=== PATIENT | female | born 1985 | race Hispanic/Latino ===

== ENCOUNTER 2018-04-12 09:17 | Observation (INO) | payer MEDICAID ==
[2018-04-12 10:16] LABS: APPEARANCE,URINE Cloudy (CLEAR); BILIRUBIN,URINE Negative (NEGATIVE); COLOR,URINE Dark Yellow (YELLOW); GLUCOSE, URINE (UA) Negative (NEGATIVE); KETONES,URINE Trace mg/dL (NEGATIVE); LEUKOCYTE ESTERASE ,URINE Small (NEGATIVE); NITRATE,URINE Negative (NEGATIVE); OCCULT BLOOD,URINE Negative (NEGATIVE); PROTEIN,URINE POS 1+ (NEGATIVE)
[2018-04-12 10:41] LABS: BACTERIA,URINE Few /HPF (None Seen); RBC,URINE 0-1 /HPF (0-1); TRICHOMONAS,URINE Few /LPF (None Seen)
[2018-04-12] MEDS ORDERED: CITRIC ACID/SODIUM CITRATE 30 ML UDCUP ONE (11:27)
[2018-04-12] MEDS ORDERED: LACTATED RINGERS 1000ML 1,000 ML IV SCH (11:30)
[2018-04-12] MEDS ORDERED: CITRIC ACID/SODIUM CITRATE 30 ML UDCUP PO SCH (11:30)
== END 2018-04-12 13:46 | disposition home or self-care (01) ==
LOC: EDH 09:17 → LDH 09:18
PROVIDERS: ADMIT Obstetrics & Gynecology; ATTEND Obstetrics & Gynecology
DX: O26.892 Other specified pregnancy related conditions, second trimester (principal); R10.13 Epigastric pain; R11.10 Vomiting, unspecified; Z3A.21 21 weeks gestation of pregnancy
CPT/HCPCS: 81001; 96360; 96361; 99285; G0378 ×4; J7120

== ENCOUNTER 2020-03-16 16:23 | Inpatient (IN) | payer MEDICAID ==
[~2020-03-16] VITALS: Ht 160 cm; Wt 108.9 kg
[~2020-03-16 16:23] MED LIST: FERR-82 PO; PREN-68 PO
[2020-03-16] MEDS ORDERED: LACTATED RINGERS 1000ML 1,000 ML IV PRN (16:27)
[2020-03-16] MEDS ORDERED: OXYTOCIN-LR 20 UNITS/1000 ML 1,000 ML IV SCH ×2 (16:30→17:00)
[2020-03-16 17:38] LABS: MEAN CORPUSCULAR HEMOGLOBIN 22.8 pg (27.0-33.0); MEAN CORPUSCULAR HGB CONC 30.9 g/dL (32.0-36.0); MEAN CORPUSCULAR VOLUME 73.8 fL (79-99); PLATELET COUNT (AUTO) 403 K/uL (130-400); RED BLOOD CELL COUNT(AUTO) 4.61 MIL/uL (4.00-5.50)
[2020-03-16 18:03] LABS: APPEARANCE,URINE Clear (CLEAR); BILIRUBIN,URINE Negative (NEGATIVE); COLOR,URINE Yellow (YELLOW); GLUCOSE, URINE (UA) Negative (NEGATIVE); KETONES,URINE Negative (NEGATIVE); LEUKOCYTE ESTERASE ,URINE Negative (NEGATIVE); NITRATE,URINE Negative (NEGATIVE); OCCULT BLOOD,URINE Negative (NEGATIVE); PH,URINE 5.5 (5.0-8.0); PROTEIN,URINE Negative (NEGATIVE); UROBILINOGEN,URINE 0.2 mg/dL (0.2-1.0)
[2020-03-16] MEDS ORDERED: CETIRIZINE HCL 5 MG TABLET PO SCH (22:00)
[2020-03-16] MEDS: AMOXICILLIN/POTASSIUM CLAV 500-125 TABLET PO SCH (23:51)
[2020-03-17] MEDS ORDERED: MEPERIDINE-PF 50 MG/ML SYG IVP SCH (07:30)
[2020-03-17] MEDS ORDERED: PROMETHAZINE HCL 25 MG/ML 1ML AMPULE IM SCH (07:30)
[2020-03-17] MEDS ORDERED: MEASLES/MUMPS/RUBELLA VACCINE, LIVE 0.5 ML/VIAL SQ PRN (10:00)
[2020-03-17] MEDS ORDERED: DIPH,PERTUSS(ACELL),TET VAC/PF 0.5 ML VIAL IM PRN (10:00)
[2020-03-17] MEDS ORDERED: WITCH HAZEL 1 PAD TP PRN (10:00)
[2020-03-17] MEDS ORDERED: BENZOCAINE/LANOLIN/ALOE VERA 60 ML AEROSOL TP PRN (10:00)
[2020-03-17] MEDS ORDERED: ACETAMINOPHEN-CODEINE 300/30MG TAB PO PRN (10:00)
[2020-03-17] MEDS ORDERED: LANOLIN 30GM OINTMENT TP PRN (10:00)
[2020-03-17] MEDS ORDERED: ACETAMINOPHEN 325 MG TAB PO PRN (10:00)
[2020-03-17 10:53] VITALS: BP 122/62
[2020-03-17] MEDS ORDERED: AMOX-426 PO (11:04)
[2020-03-17] MEDS: AMOXICILLIN/POTASSIUM CLAV 500-125 TABLET PO SCH ×2 (11:10→22:35)
[2020-03-17] MEDS: IBUPROFEN 600 MG TABLET PO PRN ×2 (11:11→22:36)
[2020-03-17 16:14] VITALS: BP 132/63
--- NOTE | 2020-03-17 18:05 | NUR ---
received pt from PACU via her bed, routine assessment done, scant vaginal bleeding noted. vital signs stable. Addendum: 03/17/20 at 1856 by KARLEE SERRANO RN Amended: Links added.
[2020-03-17 18:43] VITALS: BP 137/79
[2020-03-17 18:48] VITALS: BP 124/65
[2020-03-17] MEDS: DOCUSATE SODIUM 100 MG CAP PO SCH (21:16)
[2020-03-17 22:55] VITALS: BP 125/74
[2020-03-18 03:10] VITALS: BP 123/77
[2020-03-18 06:56] LABS: MEAN CORPUSCULAR HEMOGLOBIN 22.6 pg (27.0-33.0); MEAN CORPUSCULAR HGB CONC 30.3 g/dL (32.0-36.0); MEAN CORPUSCULAR VOLUME 74.4 fL (79-99); RED BLOOD CELL COUNT(AUTO) 4.03 MIL/uL (4.00-5.50); RED CELL DISTRIBUTION WIDTH 16.3 % (11.0-15.5); WHITE BLOOD COUNT (AUTO) 12.4 K/uL (4.8-10.8)
[2020-03-18 08:00] VITALS: BP 100/76
[2020-03-18 09:11] LABS: HEPATITIS Bs ANTIGEN SCREEN P Negative (Negative)
[2020-03-18] MEDS: IBUPROFEN 600 MG TABLET PO PRN (09:39)
[2020-03-18] MEDS: DOCUSATE SODIUM 100 MG CAP PO SCH (09:39)
--- NOTE | 2020-03-18 10:55 | NUR ---
INSTRUCTIONS READ AND EXPLAINED TO PATIENT. QUESTIONS INVITED AND ANSWERED. RX FOR IBUPROFEN 600MG HANDED TO PATIENT. PATIENT VOICED UNDERSTANDING ON ALL INSTRUCTIONS
== END 2020-03-18 12:35 | disposition home or self-care (01) | DRG 560 ==
LOC: UNDOADMIN 16:23 → LDH 16:23 → WSH 03-17 10:50
PROVIDERS: ADMIT Obstetrics & Gynecology; ATTEND Obstetrics & Gynecology
PROC: 10E0XZZ Delivery of Products of Conception, External Approach (ICD-10-PCS; principal; 2020-03-17)
PROC: 3E033VJ Introduction of Other Hormone into Peripheral Vein, Percutaneous Approach (ICD-10-PCS; 2020-03-17)
PROC: 10907ZC Drainage of Amniotic Fluid, Therapeutic from Products of Conception, Via Natural or Artificial Opening (ICD-10-PCS; 2020-03-17)
PROC: 3E0134Z Introduction of Serum, Toxoid and Vaccine into Subcutaneous Tissue, Percutaneous Approach (ICD-10-PCS; 2020-03-17)
PROC: 3E0234Z Introduction of Serum, Toxoid and Vaccine into Muscle, Percutaneous Approach (ICD-10-PCS; 2020-03-17)
DX: O80 Encounter for full-term uncomplicated delivery (principal); Z37.0 Single live birth; Z23 Encounter for immunization; Z3A.37 37 weeks gestation of pregnancy
CPT/HCPCS: 36415; 76819; 81003; 85027; 86592; 86850; 86900; 86901; 87340; 87804; A4606; G0378; J2175; J2550; J2590; J7120

== ENCOUNTER 2024-09-21 23:12 | Emergency (ER) | payer MEDICAID ==
[~2024-09-21] VITALS: Ht 160 cm; Wt 103.4 kg
[~2024-09-21 23:12] MED LIST changes: +AMOX-426 PO; -FERR-82 PO; -PREN-68 PO
--- NOTE | 2024-09-21 23:31 | ERN ---
ED Note History of Present Illness Stated Complaint: C/O COUGH,SORE THROAT, PAIN TO RIB CAGE, FEVER Chief Complaint: Cough Time Seen by MD: 23:19 Time Seen by Midlevel: 23:19 Dictation: The patient is a 38-year-old female with a history of cholecystectomy who presents to the emergency department with complaints of three weeks of cough, sore throat, right ear pain, nasal congestion, bilateral rib pain when coughing. Patient denies any fevers. Patient reports multiple family members with same symptoms at home. Allergies: Coded Allergies: No Known Drug Allergies (Unverified Allergy, Unknown, 04/12/18) Home Meds Reported Medications Amoxicillin/Potassium Clav (Augmentin 500-125 Tablet) 1 Each Tablet, 1 EACH PO [id number], TAB 03/17/20 Past Medical History Past Medical History: No Pertinent History Surgical History: Cholecystectomy LMP: Sep 21, 2024 RN Note Reviewed/Agreed w/PFSH: Yes Review of System Dictation Constitutional: Negative for fever,chills, and weight loss Eyes: Negative for injury, pain,redness, and discharge ENT: Negative for injury,pain or swelling positive for sore throat, right ear pain, nasal congestion Cardiovascular: Negative for chest pain, palpitations, and edema Respiratory: Negative for shortness of breath, , and wheezing, positive for cough Abdomen/GI: Negative for abdominal pain, nausea, vomiting, diarrhea, and constipation Back: Negative for injury and pain : Negative for injury, bleeding and discharge MS/Extremity: Negative for injury and deformity Skin: Negative for rash, and discoloration Neuro: Negative for headache, weakness, numbness, tingling, and seizure Psych: Negative for suicide ideation, homicidal ideation, and hallucinations Initial Vital Sign VS Vital Signs Date Time Temp Pulse Resp B/P (MAP) Pulse Ox O2 Delivery O2 Flow Rate FiO2 09/21/24 23:15 99.1 81 18 150/93 98 Room Air Physical Exam Dictation Vital Signs reviewed General Appearance: Alert, oriented x 3, no acute distress, well developed, nourished. Head and Face: non-traumatic. Eyes: PERRL, pink conjunctivas, eyelid no trauma, anterior chamber with arcus senilis. Ears: Pinnas intact and no signs of trauma or erythema to right ear canal clear and no discharge TM no erythema Nose: No discharge, no bleeding. Oropharynx: Mouth normal, tongue pink. pharynx clear,no erythema, tonsils no exudates, no abscesses noted, mucous membrane moist Neck: Supple, non-tender, no thyromegaly, no masses, no JVD, no bruits Breast:Deferred Chest:No tenderness, no crepitus, no paradoxical movement, no retractions Lungs:Clear, well-ventilated, symmetric, no rales, no wheezing, no rhonchi, no stridor, good breath sounds bilaterally Heart: Regular rate, regular rhythm, no murmur, no gallops Vascular: no peripheral edema, Abdomen: Soft, positive bowel sounds, nondistended, no guarding, nontender, no rebound, no masses no hepatomegaly, no splenomegaly, no Haile's sign, no hernias. Rectal: Deferred Genital: Deferred Neurological: Normal speech, motor function intact, sensory function intact Musculoskeletal: Neck nontender, full range of motion, back nontender, full range of motion, Extremities: nontender, full range of motion Skin: Color pink, dry, no turgor, no rash, no lacerations, no abrasions, no contusions. Lymphatic: Deferred Results (Laboratory/Radiology) Laboratory/Radiology Laboratory Tests Test 09/21/24 23:18 09/22/24 00:43 Influenza Type A Antigen Negative For Type A Influenza Type B Antigen Negative For Type B SARS-CoV-2, RNA, NAAT NEGATIVE SARS CoV-2 Group A Streptococcus Rapid negative (NEGATIVE) Urine HCG, Qualitative NEGATIVE (NEGATIVE) REASON: pain,cough ORDERING PHYSICIAN: LILI RIVAS PLATFORM BUILDER PROCEDURE: RIB B W CH - RIBS BILAT INC PA CHEST 4+VWS RIBS BILAT INC PA CHEST 4+VWS HISTORY: Pain and cough COMPARISON: None TECHNIQUE: Frontal projection of the chest was obtained. 4 images of bilateral ribs were obtained. FINDINGS: Prominent interstitial markings are seen. Mild bilateral pulmonary infiltrates are seen. The heart is not enlarged. The heart is not enlarged. There is no acute displaced fracture or dislocation. IMPRESSION: 1. Findings as described above. Labs Reviewed?: Yes ED Course ED Course Orders Procedure Category Date Status Time Covid Rna Naat LAB 09/21/24 Complete 23:20 Influenza Type A & B, LAB 09/21/24 Complete Rapid 23:20 Rapid (Group A Strep) LAB 09/21/24 Complete 23:20 ,Urine Test LAB 09/21/24 Complete 23:26 Guaifenesin-Dm PHA 09/21/24 Complete 200/20mg 10ml 23:30 Acetaminophen 500mg PHA 09/21/24 Complete Tab (Tylenol 500mg T 23:30 Ribs Bilat Inc Pa RAD 09/22/24 Resulted Chest 4+Vws 00:01 Current Medications Medications (Trade) Dose Ordered Sig/Sung Route PRN Reason Start Time Stop Time Status Last Admin Dose Admin Acetaminophen (TYLenol 500MG TAB) 1,000 mg ONCE ONCE PO 09/21/24 23:30 09/21/24 23:31 DC 09/21/24 23:58 Guaifenesin/ Dextromethorphan (RobiTUSSin DM 200/20MG 10ML) 10 ml ONCE ONCE PO 09/21/24 23:30 09/21/24 23:31 DC 09/21/24 23:58 Vital Signs Date Time Temp Pulse Resp B/P (MAP) Pulse Ox O2 Delivery O2 Flow Rate FiO2 09/21/24 23:15 99.1 81 18 150/93 98 Room Air Medical Decision Making MDM The patient is a 38-year-old female with a history of cholecystectomy who presents to the emergency department with complaints of three weeks of cough, sore throat, right ear pain, nasal congestion, bilateral rib pain when coughing. Patient denies any fevers. Patient reports multiple family members with same s ymptoms at home. Patient in no acute distress. Chest x-ray showed mild pulmonary infiltrates. Patient nontoxic appearance. Stable vital signs will be discharged and be treated outpatient Differential diagnosis: Rib fracture, COVID-19 infection, strep, flu, pneumothorax Need for hospitalization: Patient does not meet criteria for hospitalization. There are no social concerns with this patient. DX & DISP Disposition: Discharge Departure Impression: Primary Impression: URI (upper respiratory infection) Additional Impression: Cough Condition: Stable Scripts Guaifenesin/Dextromethorphan (Mucinex Fast-Max Dm Max Liquid) 100 Mg-5 Mg/5 Ml Liquid 5 ML PO Q4HPRN PRN for cough or cold for 6 Days, #120 ML 0 Refills Prov: LILI RIVAS PLATFORM BUILDER 09/22/24 Azithromycin (Zithromax) 250 Mg Tablet 250 MG PO AD for 5 Days, #6 TAB Take 2 250 mg tablets on day 1, then take 1 250mg tablets daily for 4 days Prov: LILI RIVAS 09/22/24 Additional Instructions: FOLLOW-UP WITH PRIMARY CARE PROVIDER IN 1 TO 2 DAYS. TAKE MEDICATIONS DIRECTED HERE IN THE EMERGENCY ROOM. OKAY TO CONTINUE HOME MEDICATIONS UNLESS OTHERWISE DISCUSSED DURING YOUR VISIT IN THE EMERGENCY ROOM TODAY. RETURN TO YOUR NEAREST EMERGENCY ROOM IF SYMPTOMS WORSEN OR IF THERE IS NO IMPROVEMENT. CALL 911 IF YOU NEED IMMEDIATE ASSISTANCE. TAKE TYLENOL OR MOTRIN AETL-LMA-UITNCPI NEEDED AND IF NO CONTRAINDICATIONS ARE PRESENT. INCREASE ORAL HYDRATION. A WOUND CULTURE OR URINE CULTURE WAS ORDERED HERE IN THE EMERGENCY ROOM DEPARTMENT PLEASE FOLLOW-UP WITH PRIMARY CARE PROVIDER AND ADVISE THEM TO GET REPEAT PORTS FROM OUR FACILITY. IF YOU HAD ANY LUZMARIA WRAP/SPLINTS THAT WERE APPLIED HERE, PLEASE DO NOT REMOVE THEM UNTIL YOU SEE YOUR PRIMARY CARE OR SPECIALTY. Referrals: EMILY NEGRON MD (PCP) Time of Disposition: 02:10 I have reviewed the case, and I agree with, Diagnosis and Plan LILI RIVAS Sep 21, 2024 23:31
[2024-09-21 23:35] LABS: RAPID GROUP A STREP negative (NEGATIVE)
[2024-09-21 23:40] LABS: SARS-CoV-2, RNA, NAAT NEGATIVE SARS CoV-2 (NEGATIVE)
[2024-09-21 23:44] LABS: INFLUENZA TYPE A Negative For Type A (NEGATIVE); INFLUENZA TYPE B Negative For Type B (NEGATIVE)
[2024-09-21] MEDS: acetaMINOPHEN 500 MG TABLET PO ONE (23:58)
[2024-09-21] MEDS: guaiFENesin-DM 200/20MG 10ML PO ONE (23:58)
[2024-09-22 00:30] VITALS: TEMP 98.6
--- NOTE | 2024-09-22 01:53 | HMCIMG ---
RIBS BILAT INC PA CHEST 4+VWS HISTORY: Pain and cough COMPARISON: None TECHNIQUE: Frontal projection of the chest was obtained. 4 images of bilateral ribs were obtained. FINDINGS: Prominent interstitial markings are seen. Mild bilateral pulmonary infiltrates are seen. The heart is not enlarged. The heart is not enlarged. There is no acute displaced fracture or dislocation. IMPRESSION: 1. Findings as described above.
[2024-09-22] MEDS ORDERED: AZIT250T PO (02:12)
[2024-09-22] MEDS ORDERED: GUAI177L5 PO (02:15)
[2024-09-22 02:40] VITALS: BP 142/88; PULSE 78; RESP 16; TEMP 98.8; O2SAT 99
== END 2024-09-22 02:39 | disposition home or self-care (01) ==
LOC: EDH 23:12
DX: J06.9 Acute upper respiratory infection, unspecified (principal); Z20.822 Contact with and (suspected) exposure to COVID-19; Z79.899 Other long term (current) drug therapy; Z90.49 Acquired absence of other specified parts of digestive tract
CPT/HCPCS: 71111; 81025; 87635; 87804; 87880; 99284

== ENCOUNTER 2025-08-01 19:46 | Emergency (ER) | payer SELFPAY ==
[~2025-08-01] VITALS: Ht 160 cm; Wt 108.9 kg
[~2025-08-01 19:46] MED LIST changes: +AZIT250T PO; +GUAI177L5 PO
--- NOTE | 2025-08-01 19:49 | NUR ---
UA CUP PROVIDED
[2025-08-01] MEDS: 0.9%NACL 1000ML 3,267 ML IV ONE (20:03)
[2025-08-01 20:17] LABS: IMMATURE GRANULOCYTE ABSOLUTE 0.05 K/uL (0-1); NUCLEATED RED BLOOD CELLS 0.0 % (0.0-0.19); PLATELET COUNT (AUTO) 294 K/uL (130-400); RED BLOOD CELL COUNT(AUTO) 4.24 MIL/uL (4.00-5.50); RED CELL DISTRIBUTION WIDTH 12.9 % (11.0-15.5); WHITE BLOOD COUNT (AUTO) 11.0 K/uL (4.8-10.8)
[2025-08-01 20:22] LABS: APPEARANCE,URINE CLOUDY (CLEAR); GLUCOSE, URINE (UA) NEGATIVE (NEGATIVE); LEUKOCYTE ESTERASE ,URINE 500 Leu/uL (NEGATIVE); NITRATE,URINE NEGATIVE (NEGATIVE); OCCULT BLOOD,URINE SMALL (NEGATIVE)
[2025-08-01 20:24] LABS: HCG,QUALITATIVE URINE NEGATIVE (NEGATIVE)
[2025-08-01 20:25] LABS: ADD UA MICROSCOPIC YES
[2025-08-01 20:27] LABS: CREATININE 0.7 mg/dL (0.5-1.0); GLOMERULAR FILTR. RATE CALC 114.0 mL/min (>90); GLUCOSE,RANDOM 155.0 mg/dL (70-105); SODIUM SERUM 135.0 mmol/L (136-145); UREA NITROGEN, BLOOD 5.0 mg/dL (7-18)
[2025-08-01 20:28] LABS: SQUAMOUS EPITHELIAL CELL,UR MANY /HPF (0-2); WBC CLUMP FEW /HPF (0-1)
[2025-08-01 20:37] LABS: CREATINE KINASE, TOTAL 150.0 U/L (21-232)
[2025-08-01] MEDS ORDERED: NITR100C PO (20:40)
--- NOTE | 2025-08-01 20:41 | ERN ---
ED Note History of Present Illness Stated Complaint: FEVER, PAINFUL URINATION, RETENTION Chief Complaint: Sepsis Time Seen by MD: 19:50 Dictation: This is a 39-year-old female who presented to the emergency room with fever dysuria going on for 3 days. Apparently she began experiencing lower abdominal pain radiating to the back she also reported urinary retention but did not report any hematuria or pyuria. The fevers are subjective with chills and sweating and she took Tylenol earlier this morning for relief. Temperature 101.9 pulse 106 respirations 20 blood pressure 156/81 with a pulse oximetry of 98% on room air Sepsis alert was called and sepsis pathway instituted Allergies: Coded Allergies: No Known Drug Allergies (Unverified Allergy, Unknown, 04/12/18) Home Meds Active Scripts Nitrofurantoin Macrocrystal (Nitrofurantoin) 100 Mg Capsule, 1 CAP PO BID for 7 Days, #14 CAP 0 Refills Prov:ALINA GOOD MD 08/01/25 Guaifenesin/Dextromethorphan (Mucinex Fast-Max Dm Max Liquid) 100 Mg-5 Mg/5 Ml Liquid, 5 ML PO Q4HPRN PRN for cough or cold for 6 Days, #120 ML 0 Refills Prov:LILI RIVAS [facility] 09/22/24 Azithromycin (Zithromax) 250 Mg Tablet, 250 MG PO AD for 5 Days, #6 TAB Take 2 250 mg tablets on day 1, then take 1 250mg tablets daily for 4 days Prov:LILI RIVAS 09/22/24 Reported Medications Amoxicillin/Potassium Clav (Augmentin 500-125 Tablet) 1 Each Tablet, 1 EACH PO [id number], TAB 03/17/20 Past Medical History Past Medical History: No Pertinent History, Other Additional Past Medical Hx: HEART MURMUR Surgical History: Cholecystectomy Family History: Negative Social History: Negative LMP: Jul 21, 2025 RN Note Reviewed/Agreed w/PFSH: Yes Review of System Dictation Constitutional: Negative for fever,chills, and weight loss Eyes: Negative for injury, pain,redness, and discharge ENT: Negative for injury,pain or swelling Cardiovascular: Negative for chest pain, palpitations, and edema Respiratory: Negative for shortness of breath, cough, and wheezing, Abdomen/GI: Negative for abdominal pain, nausea, vomiting, diarrhea, and constipation Back: Negative for injury and pain : Negative for injury, bleeding and discharge positive for dysuria, urinary retention and suprapubic abdominal pain MS/Extremity: Negative for injury and deformity Skin: Negative for rash, and discoloration Neuro: Negative for headache, weakness, numbness, tingling, and seizure Psych: Negative for suicide ideation, homicidal ideation, and hallucinations Initial Vital Sign VS Vital Signs Date Time Temp Pulse Resp B/P (MAP) Pulse Ox O2 Delivery O2 Flow Rate FiO2 08/01/25 19:48 101.8 106 20 156/81 98 Room Air 08/01/25 20:07 0 21 Physical Exam Dictation General: awake, alert, NAD morbidly obese Head/Face: Normocephalic, atraumatic Eyes: PERRL, EOMI, vision at baseline ENT: oral cavity clear, TMs clear, no signs of infection Neck: Trachea midline, supple, no nuchal rigidity Cardiovascular: RRR, normal S1/S2, No MRGs, no JVD Respiratory: CTAB, no respiratory distress, No rales or wheezes Abdomen: Soft, non-tender, non-distended, normal bowel sounds, no guarding or rebound. Skin: Warm, dry, normal turgor, no rash MS/Extremity: Pulses equal, no cyanosis, neurovascular intact, FROM Neuro: COAx4, GCS 15, strength 5/5, CN 2-12 intact, normal cerebellar exam, normal gait, Psych: Normal behavior, mood, and affect normal Extremities-trace edema without any palpable cords, Homans sign is negative Results (Laboratory/Radiology) Laboratory/Radiology Laboratory Tests Test 08/01/25 19:49 08/01/25 20:00 Urine Color YELLOW (YELLOW) Urine Appearance CLOUDY (CLEAR) H Urine pH 6.0 (5.0-8.0) Urine Specific [facility] 1.008 (1.001-1.031) Urine Protein 10 mg/dL (NEGATIVE) H Urine Glucose (UA) NEGATIVE mg/dL (NEGATIVE) Urine Ketones NEGATIVE mg/dL (NEGATIVE) Urine Occult Blood SMALL (NEGATIVE) H Urine Nitrate NEGATIVE (NEGATIVE) Urine Bilirubin NEGATIVE mg/dL (NEGATIVE) Urine Urobilinogen 2.0 mg/dL (0.2-1.0) H Urine Leukocyte Esterase 500 Nita/uL (NEGATIVE) H Urine RBC 2-5 /HPF (0-1) H Urine WBC TNTC /HPF (0-1) H Urine WBC Clumps (Auto) FEW /HPF (0-1) Urine Squamous Epithelial Cells MANY /HPF (0-2) Urine Bacteria RARE /HPF (None Seen) Urine HCG, Qualitative NEGATIVE (NEGATIVE) White Blood Count 11.0 K/uL (4.8-10.8) H Red Blood Count 4.24 MIL/uL (4.00-5.50) Hemoglobin 12.0 g/dL (12.0-16.0) Hematocrit 35.6 % (36-48) L Mean Corpuscular Volume 84.0 fL (79-99) Mean Corpuscular Hemoglobin 28.3 pg (27.0-33.0) Mean Corpuscular Hemoglobin Concent 33.7 g/dL (32.0-36.0) Red Cell Distribution Width 12.9 % (11.0-15.5) Platelet Count 294 K/uL (130-400) Mean Platelet Volume 9.4 fL (7.5-10.5) Immature Granulocyte % (Auto) 0.5 % (0-1) Neutrophils (%) (Auto) 73.5 % (40.0-77.0) Lymphocytes (%) (Auto) 18.1 % (21.0-51.0) L Monocytes (%) (Auto) 7.1 % (3.0-13.0) Eosinophils (%) (Auto) 0.5 % (0.0-8.0) Basophils (%) (Auto) 0.3 % (0.0-5.0) Neutrophils # (Auto) 8.1 K/uL (1.8-7.7) H Lymphocytes # (Auto) 2.0 K/uL (1.0-4.8) Monocytes # (Auto) 0.8 K/uL (0.1-1.0) Eosinophils # (Auto) 0.06 K/uL (0.00-0.70) Basophils # (Auto) 0.03 K/uL (0.00-0.20) Absolute Immature Granulocyte (auto 0.05 K/uL (0-1) Nucleated Red Blood Cells 0.0 % (0.0-0.19) Sodium Level 135 mmol/L (136-145) L Potassium Level 3.2 mmol/L (3.5-5.1) L Chloride Level 98 mmol/L (101-111) L Carbon Dioxide Level 26 mmol/L (21-32) Blood Urea Nitrogen 5 mg/dL (7-18) L Creatinine 0.7 mg/dL (0.5-1.0) Glomerular Filtration Rate Calc 114 mL/min (>90) Random Glucose 155 mg/dL (70-105) H Lactic Acid Level 1.6 mmol/L (0.8-2.5) Total Calcium 8.8 mg/dL (8.5-10.1) Total Creatine Kinase 150 U/L (21-232) Troponin I High Sensitivity < 4 ng/L (4-50) L Lipase 13 U/L (16-77) L Labs Reviewed?: Yes ED Course ED Course Orders Procedure Category Date Status Time Urinalysis Profile LAB 08/01/25 Complete 19:52 Cbc With Differential LAB 08/01/25 Complete 19:52 ,Urine Test LAB 08/01/25 Complete 19:52 Lipase LAB 08/01/25 Complete 19:52 Basic Metabolic Panel LAB 08/01/25 Complete 19:52 Blood Cult DELFIN 08/01/25 In Process 19:52 0.9%Nacl 1000ml (Ns PHA 08/01/25 In Process 1000ml) 20:00 Creatine Kinase, Total LAB 08/01/25 Complete 19:52 Troponin I High LAB 08/01/25 Complete Sensitivity 19:52 Lactic Acid LAB 08/01/25 Complete 19:52 Culture Urine DELFIN 08/01/25 In Process 20:25 Ceftriaxone 1g Vial PHA 08/01/25 Complete (Rocephine 1g Inj) 20:30 Ketorolac PHA 08/01/25 Complete Tromethamine 30mg/Ml 21:00 Potassium Bicarb/Cit PHA 08/01/25 Complete Ac 25meq (K-Lyte Ta 21:00 Current Medications Medications (Trade) Dose Ordered Sig/Sung Route PRN Reason Start Time Stop Time Status Last Admin Dose Admin Ceftriaxone Sodium (ROCEphine 1G INJ) 1 gm ONCE ONCE IVPB 08/01/25 20:30 08/01/25 20:33 DC 08/01/25 20:38 Ketorolac Tromethamine (toRADol) 30 mg ONCE ONCE IVP 08/01/25 21:00 08/01/25 21:01 DC 08/01/25 20:47 Potassium Bicarbonate (K-Lyte Tablet Eff 25 Meq Tablet.eff) 50 meq ONCE ONCE PO 08/01/25 21:00 08/01/25 21:02 DC 08/01/25 21:07 Sodium Chloride 3,267 ml @ 1,089 mls/hr ONCE ONCE IV 08/01/25 20:00 08/01/25 22:59 08/01/25 20:03 Vital Signs Date Time Temp Pulse Resp B/P (MAP) Pulse Ox O2 Delivery O2 Flow Rate FiO2 08/01/25 20:07 105 18 127/77 99 Room Air* 0 21 08/01/25 19:48 101.8 106 20 156/81 98 Room Air We will perform diagnostic labs, and administer medications according to the patient's complaint. Once the results are available, will review and personally interpreted the labs to rule out any acute life-threatening emergency the trach require immediate intervention and treatment. I will then re-evaluate the patient after treatment and diagnostic exams have return to determine whether the patient requires any further testing, can safely be discharged home or need further admission to hospital for additional treatment and evaluation. Medical Decision Making MDM Differential diagnosis: Sepsis likely related to acute cystitis. Other possibilities, diverticulitis, tubo-ovarian mass, intrapelvic abscess, nephrolithiasis This is a 39-year-old female who presented to the emergency room with fever dysuria going on for 3 days. Apparently she began experiencing lower abdominal pain radiating to the back she also reported urinary retention but did not report any hematuria or pyuria. The fevers are subjective with chills and sweating and she took Tylenol earlier this morning for relief. Temperature 101.9 pulse 106 respirations 20 blood pressure 156/81 with a pulse oximetry of 98% on room air Sepsis alert was called and sepsis pathway instituted 8:30 p.m. reviewed [place] [address] hemoglobin 12. BNP 7 showed a sodium of 135 chloride 98 potassium 3.2 glucose 155. Urine test is negative Urinalysis showed very high leuko esterase and too numerous to count WBCs. I updated the patient on all the lab results and the evidence of cystitis In addition to fluids, patient received Rocephin 1 g IV. She will be discharged to home on outpatient Macrobid Rationale: Tests considered and ordered secondary to shared decision making include: Previous outside records reviewed: Old ER visits. Risk of complication and/or morbidity or mortality of patient management: None Medications-Per medication reconciliation Need for hospitalization: Patient does not meet criteria for hospitalization. Need for emergency major/minor surgery: No There are no social concerns with this patient. Prescription drug management Prescriptions will include symptomatic care Patient's prior external medical records from other ER visits were reviewed by me as indicated. Prior testing and results from previous visits were reviewed. Prior tests were taken into account with medical decision making and resource utilization, independent historian/historians were used to obtain complete medical history. I independently interpreted the test that were performed, results were reviewed by me and considered findings on radiology if ordered. Medical management and examination interpretation discussions were had by me with other qualified healthcare professionals as indicated for the patient's care. Problem List Problem List: (1) Sepsis (2) Acute cystitis (3) Morbid obesity DX & DISP Disposition: Discharge Departure Impression: Primary Impression: Sepsis Additional Impressions: Acute cystitis, Morbid obesity Condition: Stable Scripts Nitrofurantoin Macrocrystal (Nitrofurantoin) 100 Mg Capsule 1 CAP PO BID for 7 Days, #14 CAP 0 Refills Prov: ALINA GOOD MD 08/01/25 Additional Instructions: Patient and the caregiver have been informed of all the diagnostic tests and the imaging conducted during the today's visit to the emergency room and has verbalized understanding of the results I have personally reviewed and interpreted all diagnostic exams performed here in the ER today as well as the vital signs documented by the nursing staff. The patient is now being discharged to home and should follow up with the primary care physician or the specialist as directed by the ER staff. Follow-up with primary care provider in 1 to 2 days. Take medications as directed here in the emergency room. Okay to continue home medications unless otherwise discussed during your visit in the emergency room today. Return to your nearest emergency room if symptoms worsen or if there is no improvement. Call 911 if you need immediate assistance. Take Tylenol or Motrin [id number] as needed and if no contraindications are present. Increase oral hydration. A wound culture or urine culture was ordered here in the emergency room department please follow-up with primary care provider and advise them to get repeat ports from our facility. If you had any Dusty wrap/splints that were applied here, please do not remove them until you see your primary care or specialty. Referrals: PAU MANNING DO (PCP) ALINA GOOD MD Aug 01, 2025 20:41
[2025-08-01 21:40] VITALS: BP 136/72; PULSE 94; RESP 18; TEMP 98.5; O2SAT 98
== END 2025-08-01 21:48 | disposition home or self-care (01) ==
LOC: EDH 19:46
DX: A41.9 Sepsis, unspecified organism (principal); E66.01 Morbid (severe) obesity due to excess calories; N30.00 Acute cystitis without hematuria; Z79.899 Other long term (current) drug therapy; Z90.49 Acquired absence of other specified parts of digestive tract
CPT/HCPCS: 99284; 96374; 96375; 82550; 84484; 80048; 83690; 85025; 87040 ×2; 87086 ×2; 87186; 83605; 81001; 81025; 36415; J1885; J7030; J0696